=== PATIENT | female | born 1975 | race Caucasian/White ===

== ENCOUNTER → 2020-06-12 | Outpatient (CLI) | payer BC, OTHER ==
[~2020-06-12] MED LIST: ACET325T9 PO; OMEP20TA63 PO
--- NOTE | 2020-06-12 16:44 | KCIC ---
THYROID ULTRASOUND History: Nontoxic goiter Comparison: None. Findings: Multiple sonographic images of the thyroid gland are submitted. Right lobe measured 4.8 x 1.7 x 2 cm. Left lobe measured 4.9 x 1.8 x 1.7 cm. Isthmus measured 0.4 cm in AP thickness. No discrete thyroid nodularity is demonstrated. Thyroid parenchyma is heterogeneous bilaterally, not associated with hypervascularity on color Doppler imaging. There are some nonspecific nodes of the visualized neck bilaterally not considered significantly enlarged based on short axis dimensions. Impression: 1. There is no discrete thyroid nodularity. There is nonspecific heterogeneity of the thyroid parenchyma bilaterally. Electronically signed by: Jamel Mayo MD (06/12/2020 4:41 PM) [id number]
== END | disposition home or self-care (01) ==
LOC: KCIC US 15:34
PROVIDERS: ATTEND Family Medicine
DX: E04.9 Nontoxic goiter, unspecified (principal)
CPT/HCPCS: 76536

== ENCOUNTER → 2020-07-16 | Outpatient (CLI) | payer OTHER ==
--- NOTE | 2020-07-16 14:41 | KCIC ---
EXAM: CT Neck without IV contrast INDICATION: Reason: NONTOXIC GOITER. / Spl. Instructions: BB over area of lump pt feels. Has been there since May. / History: TECHNIQUE: Multiple contiguous axial images were obtained of the neck without the use of IV contrast. Post-processing reconstructed images were obtained for interpretation. All CT scans performed at this facility utilize dose optimization techniques as appropriate to the exam, including the following: Automated exposure control and adjustment of the mA and/or KV according to patient size (this includes techniques or standardized protocols for targeted exams where dose is indication/reason for exam). COMPARISON: 06/12/2020 thyroid ultrasound FINDINGS: The absence of IV contrast limits evaluation of soft tissue pathology. INTRACRANIAL STRUCTURES & ORBITS: Unremarkable. AERODIGESTIVE: The nasal cavity, nasopharynx, oral cavity, oropharynx, hypopharynx, larynx, and visualized trachea and esophagus demonstrate no masses or abnormal enhancement. CERVICAL LYMPH NODES & SOFT TISSUES: No adenopathy. The midline upper neck immediately caudal to the hyoid bone contains an oval 1.3 x 1.1 x 1.4 cm soft tissue mass with a cranial tail extending to the junction between the mylohyoid and the hyoid body. Superficial to this at the skin surface is a BB marker presumably identifying the area of palpable concern. No cervical adenopathy. No other masses identified. THYROID & SALIVARY GLANDS: Unremarkable. LUNG APICES: Clear. OSSEOUS: Mild cervical degenerative spondylosis, most notably facet hypertrophy at the left C4-C5 facet joint. No fracture, malalignment or aggressive osseous lesions. IMPRESSION: Midline upper neck superficial anterior 1.3 x 1.1 x 1.4 cm mass directly beneath the hyoid bone is suggestive of a thyroglossal duct cyst. Recommend MRI of the neck with and without IV contrast to confirm its cystic nature and ultimately, head and neck surgical consultation. The thyroid gland is normal with no evidence of a goiter. Electronically signed by: Aureliano Mosley MD (07/16/2020 2:38 PM) [id number]
== END | disposition home or self-care (01) ==
LOC: KCIC CT 09:07
PROVIDERS: ATTEND Family Medicine
DX: E04.1 Nontoxic single thyroid nodule (principal); M47.812 Spondylosis without myelopathy or radiculopathy, cervical region
CPT/HCPCS: 70490

== ENCOUNTER → 2020-07-26 | Outpatient (CLI) | payer OTHER ==
[~2020-07-26] MED LIST changes: +GADOTERATE 7.5 MMOL/15ML VIAL. IVP ONE
--- NOTE | 2020-07-29 08:30 | KCIC ---
NECK ORBIT FACE W/WO CONTRAST History: Throat mass Comparison: CT neck July 16, 2020. TECHNIQUE: Multiplanar, multi sequential pre and postcontrast MR imaging was performed of the neck. Findings: Corresponding with the CT findings, there is a bilobed, midline, cystic lesion of the anterior neck about 1.2 cm transverse by 1 cm AP by 1.9 cm CC. Superiorly, this begins just below the level of the hyoid bone. There is inferior extent to level of the thyroid cartilage. The posterior margin of the lesion is just at the anterior margins of the strap muscles.. This is associated with mild enhancement at the periphery, no significant central enhancement. There is homogeneous central T2 hyperintense signal. There is no significant lymphadenopathy of the neck, some small nodes present. There is symmetric appearance of submandibular and parotid glands. There is no abnormality of the thyroid gland. There is minimal grade 1 anterior spondylolisthesis C4-5. There is degree of degenerative disc disease greatest at C4-5 and C6-7. Impression: 1. There is again bilobed T2 hyperintense lesion of the anterior midline of the neck. While not significantly embedded in the strap muscles, primary consideration would be thyroglossal duct cyst, wall enhancement potentially associated with infection. Necrotic node/nodes would be considered less likely given location and more peripheral enhancement pattern. Sequela of abscesses would also be considered less likely given lack of other significant imaging findings of infection. Electronically signed by: Jamel Mayo MD (07/29/2020 8:27 AM) [id number]
== END | disposition home or self-care (01) ==
LOC: KCIC MRI 15:01
PROVIDERS: ATTEND Family Medicine
DX: E04.1 Nontoxic single thyroid nodule (principal); J39.2 Other diseases of pharynx
CPT/HCPCS: 70543; A9575